=== PATIENT | female | born 1985 | race Caucasian/White ===

== ENCOUNTER 2016-09-29 06:55 | Inpatient (IN) | payer OTHER ==
[~2016-09-29] VITALS: Ht 168.9 cm; Wt 88.3 kg
--- NOTE | ~2016-09-29 | OR ---
PATIENT'S NAME: CORIE BORREGO [facility] AGE: 31 [address] ROOM: [address] [address] LOCATION: [facility] ADMIT DATE: 09/29/2016 OR/Procedure Report DISCHARGE DATE: FAMILY PHYSICIAN: Edmundo Bustos MD ATTENDING PHYSICIAN: Edmundo Bustos SURGEON: Edmundo Bustos MD AGING ROOM OPERATOR: DATE OF PROCEDURE: 09/29/2016 PREOPERATIVE DIAGNOSES: 1. Term intrauterine at 33 weeks' and 4 days' gestation. 2. Cytotec induction, secondary to history of macrosomia. 3. Pitocin augmentation. 4. Artificial rupture of membranes with clear fluid. POSTOPERATIVE DIAGNOSES: 1. Term intrauterine at 33 weeks' and 4 days' gestation. 2. Cytotec induction, secondary to history of macrosomia. 3. Pitocin augmentation. 4. Artificial rupture of membranes with clear fluid. 5. Delivered viable female weighing 9 pounds, 14 ounces, scores 8 and 9 at one and five minutes respectively. 6. Mild shoulder dystocia. 7. Secondary laceration with repair. DESCRIPTION: This is a 31-year-old, 3, para 2-0-0-2 who is at 33 weeks', 4 days' gestation, was admitted this morning for induction. This is her second attempt of being induced, secondary to macrosomia, already delivering a 9 pounds, 2 ounce, and 9 pounds, 6 ounce baby. Ultrasound done the week prior to her delivery showed estimated weight of 9 pounds, 14 ounces. She otherwise had no other problems with the . She is an A+, antibody screen negative, GBS negative, rubella immune female. When she was seen this morning at 8 o'clock, we had Cytotec placed, and subsequently followed that up with Pitocin. I saw her in the evening at 1930 hours, she was 3 cm, 100% effaced, -3 station. I did do an amniotomy with resultant clear fluid. She subsequently progressed to complete without difficulty. Second stage of labor was very short needing 2 sets of pushes to accomplish delivery. Baby delivered from an OA presentation. Head rotated to the maternal left, the shoulders were delivered with a little bit of difficulty, we had her on Bibi position, and just started to apply a little suprapubic pressure when the shoulder popped under. The body was also a little bit difficulty, but came out on its own. The baby was placed on maternal abdomen. The cord was doubly clamped and cut by the father. The placenta delivered after sometime of waiting. As the placenta was just starting to come, the cord did popoff. This was manually extracted with minimal effort. The uterus clamped down nicely following that. The estimated blood loss was 200 mL. Cervix was inspected and found to be intact without PATIENT'S NAME: CORIE BORREGO [facility] AGE: 31 Y [address] ROOM: [place] [address] LOCATION: [facility] ADMIT DATE: 09/29/2016 OR/Procedure Report DISCHARGE DATE: FAMILY PHYSICIAN: Edmundo Bustos MD ATTENDING PHYSICIAN: Edmundo Bustos focal laceration. There were no vaginal sidewall hematomas. There was a minor secondary laceration to the perineum, which was repaired in the usual manner with 3-0 Vicryl under the anesthesia provided by the epidural. Mom tolerated that well. Both mom and doing well at this time. Both sponge counts and needle counts are correct. EDMUNDO BUSTOS MD TAB/modl /[id number] d: 09/30/16 0202 t: 10/06/16 1112, OPERATIVE SUMMARY
[~2016-09-29 06:55] MED LIST: PRENATAL 1+1)(P1 TAB PO; PREVACID15 MG PO
[2016-09-29 07:55] LABS: BASOPHIL % 0.4 %; EOSINOPHIL % 0.6 %; HEMATOCRIT 33.2 % (33.0-46.0); HEMOGLOBIN 10.4 g/dL (11.0-15.0); IMMATURE GRANULOCYTE # 0.1 K/uL (0.0-0.3); IMMATURE GRANULOCYTE % 0.7 %; LYMPHOCYTE # 1.5 K/uL (0.8-4.0); LYMPHOCYTE % 21.7 %; MCH 27.5 pg (27.0-34.0); MCHC 31.3 gm/dL (32.0-36.5); MCV 87.8 fl (83.0-98.0); MONOCYTE # 0.5 K/uL (0.0-1.0); MONOCYTE % 6.7 %; MPV 11.4 fl (9.4-12.4); NEUTROPHIL # (ANC) 4.9 K/uL (1.8-7.8); NEUTROPHIL % 69.9 %; NRBC % 0 /100WBC (0-0.00); PLATELET COUNT 185 K/uL (150-450); RBC 3.78 M/uL (3.50-5.50); RDW-CV 12.9 % (11.9-14.6)
[2016-09-29 22:18] LABS: PCO2 43 mmHg (35-45)
[2016-09-29 22:19] LABS: BICARBONATE 20.7 mmol/L (18.0-23.0); PO2 22 mmHg (80-90)
[2016-09-30 05:08] LABS: BASOPHIL % 0.2 %; EOSINOPHIL % 0.2 %; HEMATOCRIT 28.8 % (33.0-46.0); HEMOGLOBIN 9.2 g/dL (11.0-15.0); IMMATURE GRANULOCYTE # 0.1 K/uL (0.0-0.3); IMMATURE GRANULOCYTE % 0.4 %; LYMPHOCYTE # 1.6 K/uL (0.8-4.0); LYMPHOCYTE % 13.3 %; MCH 27.5 pg (27.0-34.0); MCHC 31.9 gm/dL (32.0-36.5); MCV 86.2 fl (83.0-98.0); MONOCYTE # 0.8 K/uL (0.0-1.0); MONOCYTE % 6.9 %; MPV 10.8 fl (9.4-12.4); NEUTROPHIL # (ANC) 9.4 K/uL (1.8-7.8); NRBC % 0 /100WBC (0-0.00); PLATELET COUNT 155 K/uL (150-450); RBC 3.34 M/uL (3.50-5.50); RDW-CV 12.8 % (11.9-14.6); WBC 11.9 K/uL (4.0-11.0)
--- NOTE | 2016-09-30 13:59 | NUR ---
Met with mom and baby at bedside today. Introduced myself and the role of the CM department. Mom denies having any needs at this time. She has all necessary items for baby Saray. Mom has a history of post depression and she has already met with her doctor and is planning on going back on her medication now that Saray is born. She reports that she has all necessary supports in place. She also states this is the best she has ever felt following the delivery of one of her kids so she is hoping to have her depression under control. Will continue to follow and offer supports as needed.
--- NOTE | 2016-09-30 16:20 | NUR ---
Significant Event: Follow up: VSS, Hbg 9.2, from 10.4, SL dc'd. Feso4 inititated, Zoloft to begin tonight. Fundus firm & 1F below, flow small rubra, no clots & voiding well, reported. Medicated with Motrin @ 1426, with effectiveness.Plan home tomorrow.
--- NOTE | 2016-10-01 05:34 | NUR ---
Last VS: T:98.3 P:69 R: 14 BP: 121/72 Pain ratin. Last pain med: Motrin Medicated at: 2200 Effective: Yes Breasts: soft, filling Nipples: tender intact Fundus: firm, 1 below Lochia: small, rubra Epis/Perineum: 2nd degree, tender Voiding well: WNL Significant event: VSS, declines protonix, independent with cares, home today
[2016-10-01] MEDS ORDERED: SURFAK240 MG PO (10:01)
[2016-10-01] MEDS ORDERED: FEOSOL325 MG PO (10:02)
[2016-10-01] MEDS ORDERED: APNO TOP (10:03)
[2016-10-01] MEDS ORDERED: LANSINOH7 GM TOP (10:04)
[2016-10-01] MEDS ORDERED: MOTRIN800 MG PO (10:04)
[2016-10-01] MEDS ORDERED: ZOLOFT50 MG PO (10:04)
[2016-10-01] MEDS ORDERED: PERCOCET 5-3251 EACH PO (10:05)
== END 2016-10-01 12:00 | disposition disaster alternative care site (69) | DRG 775 ==
LOC: GOBS 06:55
PROVIDERS: ADMIT Family Medicine
PROC: 10907ZC Drainage of Amniotic Fluid, Therapeutic from Products of Conception, Via Natural or Artificial Opening (ICD-10-PCS; principal; 2016-09-29)
PROC: 10E0XZZ Delivery of Products of Conception, External Approach (ICD-10-PCS; 2016-09-29)
PROC: 0KQM0ZZ Repair Perineum Muscle, Open Approach (ICD-10-PCS; 2016-09-29)
DX: O60.14X0 Preterm labor third trimester with preterm delivery third trimester, not applicable or unspecified (principal); O36.63X0 Maternal care for excessive fetal growth, third trimester, not applicable or unspecified; O66.0 Obstructed labor due to shoulder dystocia; O70.1 Second degree perineal laceration during delivery; Z37.0 Single live birth; Z3A.33 33 weeks gestation of pregnancy
CPT/HCPCS: J2590; J3010; J7120